=== PATIENT | male | born 1970 | race Caucasian/White ===

== ENCOUNTER 2021-10-02 06:54 | Day surgery (SDC) | payer MEDICAID ==
[~2021-10-02] VITALS: Ht 182.9 cm; Wt 93.4 kg
[2021-10-02] MEDS ORDERED: MEPERIDINE 100 MG INJ. 100 MG/ML VIAL ONE (09:12)
[2021-10-02] MEDS ORDERED: MIDAZOLAM HCL 5 MG/5 ML VIAL ONE ×2 (09:12→09:18)
[2021-10-02 12:40] VITALS: BP_SYST 130
== END 2021-10-02 10:20 | disposition home or self-care (01) ==
LOC: SDS 06:54 → SMU 06:58 → SDS 10:20
PROVIDERS: ATTEND Internal Medicine
DX: Z12.11 Encounter for screening for malignant neoplasm of colon (principal); D12.2 Benign neoplasm of ascending colon; K57.30 Diverticulosis of large intestine without perforation or abscess without bleeding; K64.8 Other hemorrhoids; Z80.0 Family history of malignant neoplasm of digestive organs; Z79.899 Other long term (current) drug therapy; Z20.822 Contact with and (suspected) exposure to COVID-19
CPT/HCPCS: 36415; 45380; 87426; 88305; 99152; G0378; J2175; J2250